=== PATIENT | female | born 1995 | race Caucasian/White ===

== ENCOUNTER → 2020-08-03 08:45 | Outpatient (BNVA) | payer OTHER, SELFPAY | PROVIDERS: Visit Provider Obstetrics & Gynecology | DX: N93.9 Abnormal uterine and vaginal bleeding, unspecified (principal) | CPT/HCPCS: 83001; 84146; 84443; 84702; 85025 ==

== ENCOUNTER → 2020-08-14 13:11 | Outpatient (BNVA) | payer OTHER, SELFPAY | PROVIDERS: Visit Provider Obstetrics & Gynecology | DX: N93.9 Abnormal uterine and vaginal bleeding, unspecified (principal) | CPT/HCPCS: 76830 ==

== ENCOUNTER 2020-08-16 09:06 | Outpatient (CLI) | payer OTHER, SELFPAY ==
--- NOTE | 2020-08-16 09:14 | CT_ITS ---
WS: [id number] CT scan of the head with and without IV contrast, 08/16/2020 Clinical Data: Elevated Prolactin Comparison: None. DLP: 1719.[address] scans at [facility] use at least one of these dose optimization techniques: automat ed exposure control; mA and/or kV adjustment per patient size (includes targeted exams where dose is matched to clinical indication); or iterative reconstruction. Findings: The ventricular system is normal without shift. No recent infarct or hemorrhage is seen. There are no abnormal intracerebral masses. The cisterna magna is large. The brainstem is normal. No abnormal con trast enhancement of any structure occurs. No metastatic lesions are seen. Bony windows of the skull and skull base show no fractures or erosions. The mastoid air cells, internet systems administrator al auditory canals, sella turcica, intraorbital contents, and paranasal sinuses are unremarkable. CT/CT head wo/w con [id number] Impression: Negative CT scan of the head and without IV contrast.
[2020-08-16] MEDS: iohexol 300 mg/mL 100 mL Btl IV (09:29)
== END 2020-08-16 09:07 | disposition home or self-care (01) ==
LOC: RADWPI 09:10
PROVIDERS: PCP Physician Assistant Medical; Visit Provider Obstetrics & Gynecology
DX: E22.1 Hyperprolactinemia (principal)
CPT/HCPCS: 70470; Q9967

== ENCOUNTER → 2020-09-21 11:15 | Outpatient (BNVA) | payer OTHER, SELFPAY | PROVIDERS: PCP Physician Assistant Medical; Visit Provider Obstetrics & Gynecology | DX: N93.9 Abnormal uterine and vaginal bleeding, unspecified (principal) | CPT/HCPCS: 84146 ==

== ENCOUNTER → 2020-12-26 14:30 | Outpatient (BNVA) | payer OTHER, MEDICAID, SELFPAY | PROVIDERS: PCP Physician Assistant Medical; Visit Provider Obstetrics & Gynecology | DX: Z34.90 Encounter for supervision of normal pregnancy, unspecified, unspecified trimester (principal) | CPT/HCPCS: 84702; 85025; 86850; 86900 ==

== ENCOUNTER 2020-12-28 22:41 | Emergency (ER) | payer OTHER, MEDICAID, SELFPAY ==
[2020-12-28 22:47] VITALS: BP 120/71; PULSE 106; RESP 18; TEMP 37.1; O2SAT 95; BMI 25.7
[2020-12-28 22:55] VITALS: BP 118/77; PULSE 105; RESP 16; O2SAT 98
--- NOTE | 2020-12-28 23:25 | ED_ITS ---
HPI - Fever General: Chief Complaint: Fever Stated Complaint: fever Time Seen by Provider: 12/28/20 23:01 Source: patient Mode of arrival: ambulatory Limitations: no limitations History of Present Illness: HPI Narrative: Patient is a 25-year-old female who presents to ED today with a complaint of a fever. Patient tells me she began noticing a sore throat 1 to 2 days ago. She tells me she was seen at another facility earlier today and prescribed azithromycin for tonsillitis. Patient tells me she became concerned when she had a fever of 104 at home today. Patient is afebrile upon arrival. Of note patient has been seen Dr. Antonio recently for abnormal . She was having an inadequate rise of her hCG most likely compatible with a nonviable . Most recent serum quant was 7. She is not complaining of abdominal pain, vaginal bleeding, vaginal discharge, or odor at this time. MD elicited complaint: fever Onset (ago): hour(s) Measured temperature: 104 F Associated symptoms: Reports other (sore throat); Deny abdominal pain, flank pain, chills, chest pain, diarrhea, dysuria, headache(s), nasal congestion, nausea or vomiting Treatments prior to arrival fever: acetaminophen (500mg several hours ago) Review of Systems Const: Reports: fever(s); Denies: chills, body aches, fatigue or malaise Eyes: Denies: change in vision, blurry vision or photophobia ENMT: Reports: throat pain, enlarged tonsils and odynophagia; Denies: ear or mastoid pain, nasal discharge or nasal congestion Card: Denies: chest pain Resp: Denies: dyspnea GI: Denies: abdominal pain, nausea, vomiting, diarrhea or change in stool character : Denies: flank pain or dysuria Musc: Denies: neck pain or back pain Skin/Breast: Denies: rash Neuro: Denies: headache(s) PFSH ED PFSH: Medical History No pertinent past medical history Denies diabetes, asthma, hypertension, seizures, DVT/PE PCP: GLENIS Rangel Surgical History H/O oral surgery dental surgery when she was 7 years old Family History Family/Other Adopted Patient was adopted and does not know all of her biological family history Denies family history of Colon cancer Ovarian cancer Diabetes Heart disease Hyperlipidemia Breast cancer Hypertension Uterine cancer Thyroid condition Stroke Social History Smoking and tobacco status: never smoked Alcohol intake: current Alcohol intake frequency: holidays/special occasions only Alcohol type: beer Physical Exam Const: COMMON NORMALS: no acute distress, average body habitus, patient oriented x3, no limitations, healthy appearing, alert and well nourished GENERAL APPEARANCE: cooperative ORIENTATION/CONSCIOUSNESS: Yes awake, Yes oriented to person, Yes oriented to place and Yes oriented to time HENMT: COMMON NORMALS: normocephalic, atraumatic, hearing grossly normal bilaterally, external ears normal, EAC's normal, TM's normal bilaterally, Normal external nose present, Normal nasal mucous membranes and turbinates present, moist oral mucous membranes and gingiva normal HEAD & SCALP: normal to inspection, normocephalic and atraumatic FACE & SINUS: normal facial exam and sinuses nontender NOSE: Normal external nose present and Normal nasal mucous membranes and turbinates present EXTERNAL EAR: Yes external ears normal EXTERNAL AUDITORY CANAL: EAC's normal TYMPANIC MEMBRANE: TM's normal bilaterally MOUTH: Normal oral and palatal mucosa present, lip normal and tongue normal THROAT: abnormal tonsil bilateral erythema, exudates and hypertrophy Eye: COMMON NORMALS: Equal, round and reactive pupils present and EOMs intact bilaterally GENERAL EYE: appearance normal, both eyes and all related structures PUPIL: Yes Equal, round and reactive pupils present Neck/C-Spine: COMMON NORMALS: full ROM and no meningeal signs GENERAL: Yes lymphadenopathy Lymphadenopathy location: anterior cervical Resp: COMMON NORMALS: normal respiratory effort and clear to auscultation bilaterally AUSCULTATION: clear to auscultation bilaterally Cardio: COMMON NORMALS: regular rate and regular rhythm RATE: regular rate RHYTHM: regular rhythm Neuro: COMMON NORMALS: patient oriented x3 SENSORIUM/ORIENTATION: Yes alert, Yes oriented to person, Yes oriented to place and Yes oriented to time MENINGEAL SIGNS: Yes no meningeal signs Skin: COMMON NORMALS: no rashes or lesions noted GENERAL SKIN EXAM: no rashes or lesions noted Course Vital Signs: Vital signs: Vital Signs Temperature 98.8 F 12/28/20 22:47 Pulse Rate 105 H 12/28/20 22:55 Respiratory Rate 16 12/28/20 22:55 Blood Pressure 118/77 12/28/20 22:55 Pulse Oximetry 98 12/28/20 22:55 MDM - Fever MDM Narrative: Medical decision making narrative: Recommend she start taking the Azithromycin she was given for her diagnosis of strep. Lab Data: Labs: Lab Results 12/28/20 Range/Units 23:29 Group A Strep Rapi d Positive H (Negative) Discharge Plan Discharge Patient Disposition: Home Clinical Impression: Strep tonsillitis Condition: Stable Prescriptions: No Action prenat.vits,andry,[id number] Tablet 1 tab PO DAILY RF: 0 Discharge Orders: Discharge ED (Routine); Ordered 12/28/20 Ordered By: Galina Hernandez Referrals: Andrade Harper [Primary Care Provider] - Patient Instructions: Strep Throat - Adult Coding Level of Care Code ED Linux Unix Administrator for Padmini Shafer
[2020-12-28 23:41] LABS: Rapid Strep A Test Positive (Negative)
[2020-12-28 23:59] VITALS: BP 115/75; RESP 16; O2SAT 100
== END 2020-12-28 23:59 | disposition home or self-care (01) ==
PROVIDERS: Emergency Provider Physician Assistant; PCP Physician Assistant Medical
DX: J03.00 Acute streptococcal tonsillitis, unspecified (principal)
CPT/HCPCS: 87880; 99282

== ENCOUNTER → 2021-01-22 10:09 | Outpatient (BNVA) | payer OTHER, MEDICAID, SELFPAY | PROVIDERS: PCP Physician Assistant Medical; Visit Provider Obstetrics & Gynecology | DX: Z34.90 Encounter for supervision of normal pregnancy, unspecified, unspecified trimester (principal); O03.9 Complete or unspecified spontaneous abortion without complication | CPT/HCPCS: 88175 ==

== ENCOUNTER → 2021-04-24 09:13 | Outpatient (BNVA) | payer OTHER, MEDICAID, SELFPAY | PROVIDERS: PCP Physician Assistant Medical; Visit Provider Obstetrics & Gynecology | DX: N97.0 Female infertility associated with anovulation (principal) | CPT/HCPCS: 84144 ==

== ENCOUNTER → 2021-04-25 09:13 | Outpatient (BNVA) | payer OTHER, MEDICAID, SELFPAY | PROVIDERS: PCP Physician Assistant Medical; Visit Provider Obstetrics & Gynecology | DX: N97.0 Female infertility associated with anovulation (principal); R79.89 Other specified abnormal findings of blood chemistry; R89.9 Unspecified abnormal finding in specimens from other organs, systems and tissues | CPT/HCPCS: 84146 ==

== ENCOUNTER → 2021-05-22 10:48 | Outpatient (BNVA) | payer OTHER, MEDICAID, SELFPAY | PROVIDERS: PCP Physician Assistant Medical; Visit Provider Obstetrics & Gynecology | DX: N93.9 Abnormal uterine and vaginal bleeding, unspecified (principal) | CPT/HCPCS: 84144 ==

== ENCOUNTER → 2021-06-25 11:04 | Outpatient (BNVA) | payer OTHER, MEDICAID, SELFPAY | PROVIDERS: PCP Physician Assistant Medical; Visit Provider Nurse Practitioner Women's Health | DX: N92.6 Irregular menstruation, unspecified (principal); Z87.59 Personal history of other complications of pregnancy, childbirth and the puerperium | CPT/HCPCS: 81025; 84702 ==

== ENCOUNTER → 2021-06-27 14:26 | Outpatient (BNVA) | payer OTHER, MEDICAID, SELFPAY | PROVIDERS: PCP Physician Assistant Medical; Visit Provider Obstetrics & Gynecology | DX: O36.80X0 Pregnancy with inconclusive fetal viability, not applicable or unspecified (principal) | CPT/HCPCS: 84702 ==

== ENCOUNTER → 2021-07-02 14:17 | Outpatient (BNVA) | payer OTHER, MEDICAID, SELFPAY | PROVIDERS: PCP Physician Assistant Medical; Visit Provider Obstetrics & Gynecology | DX: O26.859 Spotting complicating pregnancy, unspecified trimester (principal); Z3A.00 Weeks of gestation of pregnancy not specified | CPT/HCPCS: 84702 ==

== ENCOUNTER → 2021-07-04 15:00 | Outpatient (BNVA) | payer OTHER, MEDICAID, SELFPAY | PROVIDERS: PCP Physician Assistant Medical; Visit Provider Obstetrics & Gynecology | DX: Z87.59 Personal history of other complications of pregnancy, childbirth and the puerperium (principal) | CPT/HCPCS: 84702 ==

== ENCOUNTER → 2021-07-15 09:05 | Outpatient (BNVA) | payer OTHER, MEDICAID, SELFPAY | PROVIDERS: PCP Physician Assistant Medical; Referring Provider Obstetrics & Gynecology; Visit Provider Internal Medicine | DX: R79.89 Other specified abnormal findings of blood chemistry (principal); O03.9 Complete or unspecified spontaneous abortion without complication | CPT/HCPCS: 99204 ==

== ENCOUNTER → 2021-07-17 09:11 | Outpatient (BNVA) | payer OTHER, MEDICAID, SELFPAY | PROVIDERS: PCP Physician Assistant Medical; Visit Provider Internal Medicine | DX: O03.9 Complete or unspecified spontaneous abortion without complication (principal); R79.89 Other specified abnormal findings of blood chemistry | CPT/HCPCS: 84146; 84439; 84443; 84702 ==

== ENCOUNTER 2021-08-15 13:53 | Outpatient (CLI) | payer OTHER, MEDICAID, SELFPAY ==
[2021-08-16 10:07] LABS: Anti-Double Strand DNA AB 2 IU/mL
[2021-08-18 02:00] LABS: CARDIOLIPIN AB (IGA) <2.0 APL-U/mL; CARDIOLIPIN AB (IGG) <2.0 GPL-U/mL; CARDIOLIPIN AB (IGM) 2.9 MPL-U/mL
[2021-08-20 02:58] LABS: Beta 2 Glycoprotein IGA <2.0 U/mL (<20.0); Beta 2 Glycoprotein IGG <2.0 U/mL (<20.0); Beta 2 Glycoprotein IGM 3.7 U/mL (<20.0)
== END 2021-08-15 13:54 | disposition home or self-care (01) ==
LOC: LAB 13:59
PROVIDERS: PCP Physician Assistant Medical; Visit Provider Obstetrics & Gynecology
DX: N96 Recurrent pregnancy loss (principal)
CPT/HCPCS: 36415; 86146; 86147; 86225

== ENCOUNTER → 2021-10-01 10:03 | Outpatient (BNVA) | payer OTHER, MEDICAID, SELFPAY | PROVIDERS: PCP Physician Assistant Medical; Visit Provider Obstetrics & Gynecology | DX: Z34.90 Encounter for supervision of normal pregnancy, unspecified, unspecified trimester (principal) | CPT/HCPCS: 84702 ==

== ENCOUNTER → 2021-10-07 08:46 | Outpatient (BNVA) | payer OTHER, MEDICAID, SELFPAY | PROVIDERS: PCP Physician Assistant Medical; Visit Provider Obstetrics & Gynecology | DX: Z34.90 Encounter for supervision of normal pregnancy, unspecified, unspecified trimester (principal) | CPT/HCPCS: 84702 ==

== ENCOUNTER 2022-02-25 10:20 | Outpatient (CLI) | payer OTHER, MEDICAID, SELFPAY ==
[2022-02-25 12:11] LABS: Estmated Average Glucose 97
[2022-03-06 01:57] LABS: Prolactin, Monomeric 10.4 ng/mL (3.2-25.2); Prolactin, Total 13.2 ng/mL
== END 2022-02-25 10:21 | disposition home or self-care (01) ==
PROVIDERS: Visit Provider Nurse Practitioner Family
DX: N96 Recurrent pregnancy loss (principal)
CPT/HCPCS: 36415; 83036; 84146

== ENCOUNTER → 2022-10-22 09:40 | Outpatient (BNVA) | payer OTHER, MEDICAID, SELFPAY | PROVIDERS: Visit Provider Internal Medicine | DX: R79.89 Other specified abnormal findings of blood chemistry (principal); N92.6 Irregular menstruation, unspecified | CPT/HCPCS: 84146; 84439; 84443 ==

== ENCOUNTER → 2023-01-02 09:34 | Outpatient (BNVA) | payer OTHER, MEDICAID, SELFPAY | PROVIDERS: Visit Provider Nurse Practitioner Women's Health | DX: Z34.90 Encounter for supervision of normal pregnancy, unspecified, unspecified trimester (principal); N96 Recurrent pregnancy loss; R79.89 Other specified abnormal findings of blood chemistry; O09.899 Supervision of other high risk pregnancies, unspecified trimester | CPT/HCPCS: 84315; 84702 ==

== ENCOUNTER → 2023-01-07 09:12 | Outpatient (BNVA) | payer OTHER, MEDICAID, SELFPAY | PROVIDERS: Visit Provider Nurse Practitioner Women's Health | DX: Z36.87 Encounter for antenatal screening for uncertain dates (principal) | CPT/HCPCS: 76801 ==

== ENCOUNTER 2023-01-16 08:26 | Outpatient (CLI) | payer OTHER, MEDICAID, SELFPAY ==
[2023-01-16 10:00] LABS: Free T4 Free Thyroxine 1.17 ng/dL (0.82-1.77); Thyroid Stimulating Hormone 0.73 uIU/mL (0.27-4.20)
[2023-01-16 10:42] LABS: Prolactin 2.65 ng/mL (4.8-23.3)
== END 2023-01-16 08:27 | disposition home or self-care (01) ==
LOC: LAB 08:30
PROVIDERS: Visit Provider Internal Medicine
DX: N92.6 Irregular menstruation, unspecified (principal); R79.89 Other specified abnormal findings of blood chemistry
CPT/HCPCS: 36415; 84146; 84439; 84443

== ENCOUNTER → 2023-01-19 11:00 | Outpatient (BNVA) | payer OTHER, MEDICAID, SELFPAY | PROVIDERS: Visit Provider Obstetrics & Gynecology | DX: O09.899 Supervision of other high risk pregnancies, unspecified trimester (principal) | CPT/HCPCS: 80307; 84315; 85027; 86592; 86762; 86803; 86850; 86900; 87086; 87340; 87491; 87591; 87661; 87806; 88175 ==

== ENCOUNTER 2023-03-16 10:07 | Outpatient (CLI) | payer OTHER, MEDICAID, SELFPAY ==
[2023-03-16 11:18] LABS: Prolactin 37.73 ng/mL (4.8-23.3)
== END 2023-03-16 10:08 | disposition home or self-care (01) ==
LOC: LAB 10:11
PROVIDERS: PCP Nurse Practitioner Family; Visit Provider Internal Medicine
DX: Z34.90 Encounter for supervision of normal pregnancy, unspecified, unspecified trimester (principal); N92.6 Irregular menstruation, unspecified; R79.89 Other specified abnormal findings of blood chemistry
CPT/HCPCS: 36415; 84146

== ENCOUNTER → 2023-04-01 09:15 | Outpatient (BNVA) | payer OTHER, MEDICAID, SELFPAY | PROVIDERS: PCP Nurse Practitioner Family; Visit Provider Obstetrics & Gynecology | DX: Z36.87 Encounter for antenatal screening for uncertain dates (principal) | CPT/HCPCS: 76805 ==

== ENCOUNTER → 2023-04-22 09:15 | Outpatient (BNVA) | payer OTHER, MEDICAID, SELFPAY | PROVIDERS: PCP Nurse Practitioner Family; Visit Provider Obstetrics & Gynecology | DX: O09.899 Supervision of other high risk pregnancies, unspecified trimester (principal); Z3A.00 Weeks of gestation of pregnancy not specified | CPT/HCPCS: 76816 ==

== ENCOUNTER → 2023-04-28 08:31 | Outpatient (BNVA) | payer OTHER, MEDICAID, SELFPAY | PROVIDERS: PCP Nurse Practitioner Family; Visit Provider Nurse Practitioner Women's Health | DX: O09.899 Supervision of other high risk pregnancies, unspecified trimester (principal); Z3A.24 24 weeks gestation of pregnancy | CPT/HCPCS: 82950; 84315 ==

== ENCOUNTER → 2023-05-28 09:50 | Outpatient (BNVA) | payer OTHER, MEDICAID, SELFPAY | PROVIDERS: PCP Nurse Practitioner Family; Visit Provider Obstetrics & Gynecology | DX: O09.899 Supervision of other high risk pregnancies, unspecified trimester (principal); Z3A.28 28 weeks gestation of pregnancy | CPT/HCPCS: 81000; 85025 ==

== ENCOUNTER → 2023-06-11 09:20 | Outpatient (BNVA) | payer OTHER, MEDICAID, SELFPAY | PROVIDERS: PCP Nurse Practitioner Family; Visit Provider Obstetrics & Gynecology | DX: O09.899 Supervision of other high risk pregnancies, unspecified trimester (principal); O99.013 Anemia complicating pregnancy, third trimester; O34.42 Maternal care for other abnormalities of cervix, second trimester; R87.619 Unspecified abnormal cytological findings in specimens from cervix uteri; N96 Recurrent pregnancy loss; R79.89 Other specified abnormal findings of blood chemistry; O35.HXX0 Maternal care for other (suspected) fetal abnormality and damage, fetal lower extremities anomalies, not applicable or unspecified; Z3A.30 30 weeks gestation of pregnancy | CPT/HCPCS: 81000 ==

== ENCOUNTER 2023-06-17 09:43 | Outpatient (CLI) | payer MEDICAID, SELFPAY ==
[2023-06-17 10:55] LABS: Prolactin 286.8 ng/mL (4.8-23.3)
== END 2023-06-17 09:44 | disposition home or self-care (01) ==
PROVIDERS: PCP Nurse Practitioner Family; Visit Provider Internal Medicine
DX: R79.89 Other specified abnormal findings of blood chemistry (principal)
CPT/HCPCS: 36415; 84146

== ENCOUNTER → 2023-06-25 10:58 | Outpatient (BNVA) | payer OTHER, MEDICAID, SELFPAY | PROVIDERS: PCP Nurse Practitioner Family; Visit Provider Obstetrics & Gynecology | DX: O09.899 Supervision of other high risk pregnancies, unspecified trimester (principal); Z3A.32 32 weeks gestation of pregnancy | CPT/HCPCS: 81000 ==

== ENCOUNTER → 2023-07-23 09:39 | Outpatient (BNVA) | payer OTHER, MEDICAID, SELFPAY | PROVIDERS: PCP Nurse Practitioner Family; Visit Provider Obstetrics & Gynecology | DX: O09.899 Supervision of other high risk pregnancies, unspecified trimester (principal); Z34.90 Encounter for supervision of normal pregnancy, unspecified, unspecified trimester; Z3A.36 36 weeks gestation of pregnancy | CPT/HCPCS: 84315; 85025; 87081 ==

== ENCOUNTER 2023-07-30 07:30 | Day surgery (SDC) | payer OTHER, MEDICAID, SELFPAY ==
--- NOTE | 2023-07-30 09:11 | P.ANESASSM_ITS ---
Pre-Anesthetic Assessment Height/Weight: Height 1.42 m Familial anesthetic complications: None Social No alcohol and No tobacco Exam alert, oriented x 3, clear to auscultation bilaterally and regular rate & rhythm Airway Dentition: chipped Pulmonary None reported CV/HEM None reported None reported Hepatic None reported GI Gastroesophageal Reflux Disease Metabolic None reported Musc/skel Cleidocranial dysplasi Anesthetic Plan ASA status: 2 Anesthesia: Regional (specify below) Risk of > 500 ml blood loss (7ml/kg in children): Yes, adequate IV access and fluids planned Medications/Allergies Home Medications Medication Instructions Recorded Confirmed Last Taken Type cabergoline 0.5 mg tablet 0.25 mg PO .COMPLEX #90 tabs 10/22/22 07/30/23 Unknown Rx PNV 153-FA 400 mcg-om3 35 mg-dha 1 tab PO DAILY 01/02/23 07/30/23 Unknown History 25 mg-epa 5 mg-fish oil chew tablet ( Gummies) ferrous sulfate 325 mg (65 mg 325 mg PO BID Anemia 30 days #60 06/11/23 07/30/23 Unknown Rx iron) tablet tabs Allergies Allergy/AdvReac Type Severity Reaction Status Date / Time cefdinir Allergy Severe hives Verified 07/30/23 08:04 [facility] Anesthesia Medical History Elevated prolactin level Diagnosed 07/31/2018 and has taken cabergoline in the past. Now being managed by manager domestic Dr. Lainez at [facility] No pertinent past medical history Denies diabetes, asthma, hypertension, seizures, DVT/PE PMD: clinic Surgical History H/O oral surgery dental surgery when she was 7 years old Family History Family/Other Adopted Patient was adopted and does not know all of her biological family history Denies family history of Colon cancer Ovarian cancer Diabetes Heart disease Hyperlipidemia Breast cancer Hypertension Uterine cancer Thyroid disease Stroke Data Anesthesia Cardiac Studies: No Data to Display
== END 2023-07-30 23:00 | disposition home or self-care (01) ==
LOC: OR 08-20 10:38
PROVIDERS: PCP Nurse Practitioner Family; Visit Provider Obstetrics & Gynecology
DX: Z01.818 Encounter for other preprocedural examination (principal)
CPT/HCPCS: 81000

== ENCOUNTER → 2023-08-20 08:30 | Outpatient (BNVA) | payer OTHER, MEDICAID, SELFPAY | PROVIDERS: PCP Nurse Practitioner Family; Visit Provider Obstetrics & Gynecology | DX: O09.899 Supervision of other high risk pregnancies, unspecified trimester (principal); Z3A.40 40 weeks gestation of pregnancy | CPT/HCPCS: 76819 ==

== ENCOUNTER 2023-08-20 17:39 | Inpatient (IN) | payer OTHER, MEDICAID, SELFPAY ==
[2023-08-20] VITALS (17 sets, daily range): BP systolic 113–131; BP diastolic 66–80; PULSE 68–94; RESP 16; TEMP 36.5–36.8; BMI 28.0
[2023-08-20 18:05] LABS: Basophils % 0.4 %; Eosinophils # 0.1 10^3/uL (0.0-0.8); Eosinophils % 0.8 %; Hematocrit 33.3 % (36-47); Lymphocytes # 2.6 10^3/uL (0.8-4.8); Lymphocytes % 23.4 %; Mean Corpuscular HGB Conc 32.7 g/dL (30-55); Mean Corpuscular Hemoglobin 28.5 pg (27-33); Mean Corpuscular Volume 87.2 fl (85-98); Mean Platelet Volume 12.4 fL (7.4-10.4); Monocytes # 0.8 10^3/uL (0.2-0.9); Monocytes % 6.9 %; Neutrophils # 7.65 10^3/uL (1.8-7.7); Neutrophils % 68.1 %; Nucleated Red Blood Cells % 0 %; Platelet Count 226 10^3/cmm (157-399); Red Blood Count 3.82 10^6/uL (3.85-5.65); White Blood Count 11.24 10^3/uL (3.29-11.43)
[2023-08-20] MEDS: miSOPROStol 100 mcg tablet 25 MCG VAGINAL ×2 (18:32→23:00)
[2023-08-20] MEDS: lactated ringers 1,000 ML 999 ML IV (19:34)
[2023-08-21] VITALS (93 sets, daily range): BP systolic 98–183; BP diastolic 56–88; PULSE 51–87; RESP 14–18; TEMP 35.9–36.8; O2SAT 98–100
[2023-08-21] MEDS: miSOPROStol 100 mcg tablet 25 MCG VAGINAL (03:09)
[2023-08-21] MEDS: fentaNYL 50 mcg/mL INJ 2mL IVP ×7 (06:15→20:18)
--- NOTE | 2023-08-21 09:58 | PM.PN ---
Subjective Subjective: Mrs. Jackman 28-year-old female with IUP at 40 weeks 3 days. Admitted for elective induction Vitals/I&O/Wt Last Vital Signs Temp 97.9 F 08/21/23 06:19 Pulse 56 L 08/21/23 09:18 Resp 17 08/21/23 07:18 BP 110/66 08/21/23 09:18 O2 Del Method Room Air 08/20/23 18:04 08/20/23 08/21/23 08/21/23 22:59 06:59 14:59 Intake Total 1000 / 1000 Balance 1000 / 1000 Weight last 48 hrs Weight 56.699 kg Physical Exam Narrative: GA: Alert and oriented ?3. Lungs: Clear to auscultation bilaterally. Heart: Regular rhythm and rate. Abdomen: Gravid, full the height equals dates, nontender. BINITROTOLUENE OPERATOR: SVE; dilation: 2 cm, effacement: []%, station: [], presentation: [], membranes: []. Extremities: no edema, no cyanosis, no calves pain. heart tracing: Basal rate: [140's] bpm, Variability: [moderate], Accelerations: [present], Decelerations: [absent], Contraction: [q3min]. Data 08/22/23 17:19 A&P Assessment and plan (1) Term : Mrs. Jackman 28-year-old female with IUP at 40 weeks 3 days. Admitted for induction. Misoprostol grieving overnight for cervical ripening. Cervix dilated to 2 cm. We will start with low-dose oxytocin (2) Oligohydramnios antepartum: Attestations Medical Necessity Statement*: In my professional opinion per admitting diagnosis Coding Level of Care Code Acute Code for Chg Fwd Diagnoses Term Z34.90 Oligohydramnios antepartum O41.00X0
[2023-08-21] MEDS: dextrose 5%-lactated ringers 1,000 ML 125 ML IV ×2 (10:39→17:54)
[2023-08-21] MEDS: oxytocin 30 UNIT/500 ML BAG IV (10:39)
[2023-08-21] MEDS: ondansetron 2 mg/ML SDV 2 mL 4 MG IVP ×2 (16:16→20:53)
[2023-08-21] MEDS: lactated ringers 1,000 ML 999 ML IV (20:22)
--- NOTE | 2023-08-21 20:35 | P.HP_ITS ---
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 Admitted for Cervical Ripening and IOL. Patient admits to good movement, denies leakage of fluid or vaginal bleeding. She denies any complications through this course. She has history of seeing an tactical air defense controller due to elevated prolactin levels and has been treated with cabergoline 0.25 mg twice daily. MFM visit with level 2 ultrasound indicates no abnormalities. Patient has received 3 doses of Cytotec and is currently on Pitocin at 12 milliunits. Cervix?3 cm / 70%/-3 vertex presentation. AROM with clear fluid noted. Present Details : 1 Labs Rubella: Immune RPR: Negative GBS: Negative Review of Systems Narrative: movement: Const: Denies: fever(s) or chills Card: Denies: chest pain, palpitations, irregular heart rhythm or syncope Resp: Denies: dyspnea GI: Denies: abdominal pain, nausea or vomiting : Denies: flank pain, dysuria, urinary frequency or urinary urgency Musc: Denies: back pain or extremity swelling Skin/Breast: Denies: rash, pruritus, breast pain, nipple discharge or breast mass Neuro: Denies: headache(s), difficulty walking, dizziness or restless legs Psych: Denies: anxiety, depression or mood swings Endo: Denies: polyuria, tired all the time, cold intolerance or heat intolerance Odin/Lymph: Denies: easy bruising, easy bleeding, petechiae or purpura All/Imm: Denies: urticaria Medications/Allergies Home Medications Medication Instructions Recorded Confirmed Last Taken Type cabergoline 0.5 mg tablet 0.25 mg PO .COMPLEX #90 tabs 10/22/22 08/20/23 Unknown Rx PNV 153-FA 400 mcg-om3 35 mg-dha 1 tab PO DAILY 01/02/23 08/20/23 Unknown History 25 mg-epa 5 mg-fish oil chew tablet ( Gummies) ferrous sulfate 325 mg (65 mg 325 mg PO BID Anemia 30 days #60 06/11/23 08/20/23 Unknown Rx iron) tablet tabs Allergies Allergy/AdvReac Type Severity Reaction Status Date / Time cefdinir Allergy Severe hives Verified 08/20/23 08:02 PFSH TONGUE AND GROOVE MACHINE OPERATOR PFSH: Medical History Elevated prolactin level Diagnosed 07/31/2018 and has taken cabergoline in the past. Now being managed by tactical air defense controller Dr. Lainez at [facility] No pertinent past medical history Denies diabetes, asthma, hypertension, seizures, DVT/PE PMD: [facility] Surgical History H/O oral surgery dental surgery when she was 7 years old Family History Family/Other Adopted Patient was adopted and does not know all of her biological family histo ry Denies family history of Colon cancer Ovarian cancer Diabetes Heart disease Hyperlipidemia Breast cancer Hypertension Uterine cancer Thyroid disease Stroke Other Female Reproductive History: Hx Age of Menarche: 12 Duration of menses: 6-7 days Date of Last Menstrual Period: 11/11/22 Cycle Length: 28 days Menstrual flow: normal/abnormal: normal Sexual History: Are you sexually active?: Yes Less than 5 How long have you been with your current partner?: Since 2019 Hx Sexually Transmitted Diseases: No Contraception: Contraception History Comment: History of oral contraception for menstrual regulation. History History History 4 Term 0 0 Miscarriages/Ectopic 3 Living Children 0 Care MATHEUS Calculator Estimated Delivery Date Method Current WG Current Estimate 08/18/23 LMP (Certain) 40w 3d Specific Issues/Plans * ANEMIA--dx at 28wks; iron bid; rpt cbc at 36 weeks * RECURRENT SAB * ELEVATED PROLACTIN * SUSPECTED UNILATERAL CLUB FOOT-- refer to [facility] 04/28/2023 Vitals/I&O/Wt Last Vital Signs Temp 96.6 F L 08/21/23 16:35 Pulse 67 08/21/23 20:32 Resp 18 08/21/23 18:54 BP 183/83 08/21/23 20:32 O2 Del Method Room Air 08/21/23 18:41 08/21/23 08/21/23 08/21/23 06:59 14:59 22:59 Intake Total 19.516 / 19.516 1443.517 / 1463.033 Balance 19.516 / 19.516 1443.517 / 1463.033 Weight last 48 hrs Weight 56.699 kg Physical Exam Narrative: 28-year-old female with short stature 4 foot 8 Const: COMMON NORMALS: no acute distress, healthy appearing and well nourished HENMT: COMMON NORMALS: normocephalic Resp: COMMON NORMALS: clear to auscultation bilaterally Cardio: COMMON NORMALS: regular rate and regular rhythm Back/Pelvis: OTHER: Abdomen?soft, gravid Pelvic exam as above Extremity: COMMON NORMALS: no calf tenderness and no pedal edema Neuro: COMMON NORMALS: patient oriented x3 and CN's II-XII intact bilaterally Data 08/20/23 17:45 Results Labs OB ([facility]): Obstetrics US 04/22/23 Obstetrics US/Biophysical Profile Blood Type A Positive 08/20/23 Antibody Screen Negative 08/20/23 Hct 33.3 % (36-47) L 08/20/23 Hgb 10.90 g/dL (11.27-16.99) L 08/20/23 Rho(D) Type Rh positive 08/20/23 Plt Count 226 10^3/cmm (157-399) 08/20/23 Hep Bs Antigen Non-reactive (Nonreactive) 01/19/23 Hepatitis C Antibody Non-reactive (Nonreactive) 01/19/23 Rubella IgG Antibody 168.8 IU/mL (0.0-10.0) H 01/19/23 RPR Nonreactive (Nonreactive) 01/19/23 HIV 1&2 Ab & HIV 1 Ag Non-reactive (Non-Reactiv) 01/19/23 TSH 0.73 uIU/mL (0.27-4.20) 01/16/23 Free T4 1.17 ng/dL (0.82-1.77) 01/16/23 Cystic Fibrosis Screen Negative 03/03/23 Glucose 1 Hr 50 gm 70 mg/dL (85-140) L 04/28/23 Hemoglobin A1c 5.0 % (4.0-6.0) 02/25/22 Progesterone 10.20 ng/mL 05/22/21 FSH 5.4 mIU/mL 08/03/20 Ser , Semi-Qnt 86008.00 mIU/mL 01/02/23 HCG, Qual Positive (Negative) H 06/25/21 Urine Opiates Screen Negative ng/mL (Negative) 01/19/23 Ur Barbiturates Screen Negative ng/mL (Negative) 01/19/23 Ur Phencyclidine Scrn Negative ng/mL (Negative) 01/19/23 Ur Amphetamines Screen Negative ng/mL (Negative) 01/19/23 U Benzodiazepines Scrn Negative ng/mL (Negative) 01/19/23 Urine Cocaine Screen Negative ng/mL (Negative) 01/19/23 U Marijuana (THC) Screen Negative ng/mL (Negative) 01/19/23 Micro Urine Specimen 01/19/23 Pap Smear Interpret See note A 01/19/23 Prolactin 286.8 ng/mL (4.8-23.3) H 06/17/23 A&P Assessment and plan (1) Postmaturity , 40-42 weeks gestation: Plan 1. Cervical ripening/induction of labor at 40.3 weeks gestation 2. Consider magnesium sulfate if blood pressure remains elevated (2) Oligohydramnios antepartum: (3) Anemia affecting in third trimester: (4) Supervision of other high-risk : (5) History of recurrent miscarriages: (6) Prolactin increased: (7) Abnormal cervical Papanicolaou smear affecting in second trimester: Attestations Medical Necessity Statement*: Admission to labor and delivery for postdate for induction of labor m anagement Coding Level of Care Code Acute Code for Chg Fwd Diagnoses Postmaturity , 40-42 weeks gestation O48.0 Oligohydramnios antepartum O41.00X0 Anemia affecting in third trimester O99.013 Supervision of other high-risk O09.899 History of recurrent miscarriages N96 Prolactin increased R79.89 Abnormal cervical Papanicolaou smear affecting in second trimester O34.42; R87.619
--- NOTE | 2023-08-21 21:24 | P.ANESUD_ITS ---
Documented by User: Elliott English CRNA 08/21/23 21:25 Pre-Anesthetic Update Pre-Anesthetic Assessment: Date of Surgery/Procedure: 08/21/23 Any changes to Pre-Anesthetic Assessment?: No Last Intake: Solid food >24 hours Labs Last 48hrs: Short CBC 08/20/23 Range/Units 17:45 WBC 11.24 (3.29-11.43) 10^ 3/uL Hgb 10.90 L (11.27-16.99) g/ dL Hct 33.3 L (36-47) % MCV 87.2 (85-98) fl Plt Count 226 (157-399) 10^3/c mm Neut % (Auto) 68.1 % Neut # (Auto) 7.65 (1.8-7.7) 10^3/u L Blood Bank 08/20/23 17:45 Blood Type A Positive Rho(D) Type Rh positive Antibody Screen Negative Vitals: Temperature 96.6 F L 08/21/23 16:35 Pulse Rate 70 08/21/23 21:16 Pulse Rhythm Regular 08/20/23 18:04 Respiratory Rate 18 08/21/23 18:54 Respiratory Effort Spontaneous, Non- Labored, Easy 08/21/23 18:54 Respiratory Depth Normal 08/21/23 18:54 Respiratory Patter n Normal 08/21/23 18:54 Blood Pressure 142/67 08/21/23 21:16 Oxygen Delivery Me thod Room Air 08/21/23 18:41 Exam: Pre-Anes Outpt Exam: alert, oriented x 3, clear to auscultation bilate rally and regular rate & rhythm Cardiac Studies: No Data to Display Documented by User: John Rangel 08/22/23 06:09 Pre-Anesthetic Update Pre-Anesthetic Assessment: Date of Surgery/Procedure: 08/22/23 Cardiac Studies: No Data to Display
[2023-08-21] MEDS: ROPivacaine syringe 100 MG/50 ML SYRINGE 10 MG EPIDURAL (21:48)
--- NOTE | 2023-08-21 21:55 | ANES.PROC ---
Documented by User: Elliott English, OPEN CUT EXAMINER 08/21/23 21:56 Anesthesia Procedures Procedure/Date: 08/21/23 Epidural: Time Out Performed: Yes Consents Signed: Procedure Consent and NPO Consent Consent: requested by attending/covering physician, from patient, risks and benefits reviewed and patient agrees to proceed Lumbar Level: L3-L4 Epidural position: sitting Epidural procedure: sterile prep of area (betadine), 1% lidocaine to numb the area (3 mLs), neg for paresthesia, test dose given, 1.5% xylocaine 1:200k epi (3 mL/2 mL), 0.2% Ropivacaine bolus ml (5 mLs), placed PCEA, no systemic response, sterile dressing applied, L.U.D. no apparent complications and 0.2% Ropiavacaine @ mls/hr (10 mLs/hr) Additional Comments: RUI 5cm, catheter placed to 11 cm Documented by User: John Rangel 08/22/23 06:09 Anesthesia Procedures Procedure/Date: 08/22/23
[2023-08-22] VITALS (59 sets, daily range): BP systolic 100–139; BP diastolic 56–85; PULSE 68–116; RESP 14–16; TEMP 35.7–37.7; O2SAT 77–100
[2023-08-22] MEDS: ROPivacaine syringe 100 MG/50 ML SYRINGE 10 MG EPIDURAL (01:50)
[2023-08-22] MEDS: dextrose 5%-lactated ringers 1,000 ML 125 ML IV ×2 (03:35→12:27)
[2023-08-22] MEDS: lactated ringers 1,000 ML 999 ML IV (03:44)
--- NOTE | 2023-08-22 05:11 | PM.PN ---
Subjective Subjective: Called to see patient regarding tachycardia at 4:40 AM. Upon arrival decreased variability with tachycardia at 215 bpm. (Approximately 1 hour) nursing staff report cervical dilatation at 6 to 7 cm. Reviewed with patient tachycardia and repeat for delivery by section. Risk of bleeding, infection and injury to pelvic and abdominal organs blood vessels and nerves reviewed. Patient verbalized understanding and consents were signed. Surgical staff have been called. Vitals/I&O/Wt Last Vital Signs Temp 99.9 F H 08/22/23 03:34 Pulse 115 H 08/22/23 04:58 Resp 18 08/21/23 18:54 BP 112/62 08/22/23 04:53 Pulse Ox 100 08/22/23 04:58 O2 Del Method Room Air 08/21/23 18:41 08/21/23 08/21/23 08/22/23 14:59 22:59 06:59 Intake Total 19.516 / 19.516 2832.783 / 2852.299 791.917 / 3644.216 Balance 19.516 / 19.516 2832.783 / 2852.299 791.917 / 3644.216 Weight last 48 hrs Weight 56.699 kg Physical Exam Urinary Catheter Management: Estrada: Cath Placed During This Visit: yes Urinary Catheter Date of Insertion: 08/21/23 Urinary Catheter Time of Insertion: 22:27 Data 08/20/23 17:45 A&P Assessment and plan (1) tachycardia during labor: Plan 1. Proceed with section delivery (2) Postmaturity , 40-42 weeks gestation: (3) Oligohydramnios antepartum: (4) Anemia affecting in third trimester: (5) Supervision of other high-risk : (6) History of recurrent miscarriages: (7) Prolactin increased: Attestations Medical Necessity Statement*: Management of postterm . Coding Level of Care Code Acute Code for Chg Fwd Diagnoses tachycardia during labor Postmaturity , 40-42 weeks gestation O48.0 Oligohydramnios antepartum O41.00X0 Anemia affecting in third trimester O99.013 Supervision of other high-risk O09.899 History of recurrent miscarriages N96 Prolactin increased R79.89
[2023-08-22] MEDS: metoclopramide 5 mg/mL SDV 2 mL 10 MG IVP (05:20)
[2023-08-22] MEDS: famotidine 20 mg/2 mL INJ IVP (05:20)
[2023-08-22] MEDS: citric acid-sodium citrate 30 mL UDC PO (05:23)
[2023-08-22] MEDS: methylergonovine 0.2 mg/mL INJ 1 mL IM (06:00)
--- NOTE | 2023-08-22 06:34 | PM.DELIVERY ---
Delivery Note: Date of delivery: August 22, 2023 Pre-delivery diagnoses: 40.3-week gestation tachycardia Oligohydramnios History of elevated prolactin level Maternal short stature Clubfoot of fetus affecting antepartum care (ultrasound) Post-delivery diagnoses: Same Procedure: 28-year-old female at 40.3 weeks gestation counseled on primary section due to tachycardia. Risk and benefits reviewed and consent signed. Patient was prepared for surgery and transported to the surgical suite after being seen by anesthesia. Her epidural was redosed skin testing was adequate. Estrada catheter was in place. Abdomen and pelvis prepped and draped in the standard fashion. A Pfannenstiel incision was made 2 cm above the pubis and extended to the fascia. The fascia was incised and the incision lateralized. The fascia was dissected off the rectus muscle and the muscles entered in the midline. The peritoneum was opened bluntly a bladder flap placed to protect the bladder. A low transverse uterine incision was made and extended laterally. The 's vertex was delivered through the incision atraumatically followed by the anterior and posterior shoulders with the remainder of the baby's body to follow. Moderate molding was noted. A weak cry was noted. The umbilical cord was clamped and cut and baby placed on the warmer. Stitch Bonding Machine Drawer In was in attendance and cared for the infant. Cord pH and cord blood were drawn and handed off. The placenta was manually removed the uterus exteriorized and wiped clean with a lap sponge. Pitocin was added to the current infusing IV and administered in a bolus manner. The uterus was massaged and was slow to firm. Methergine 0.2 was given IM. TXA was given IV. The uterine incision was closed with 0 Vicryl in a running interlocking stitch with good approximation and hemostasis. Small amount of oozing was noted in the left corner of the incision this was oversewn with 0 Vicryl with good hemostasis. The uterus again was massaged and started to firm well. The posterior cul-de-sac and sidewalls were wiped clean with a moist lap sponge. The uterus replaced in the abdomen the incision inspected and noted to be hemostatically intact. The peritoneum and rectus muscle were approximated with 2-0 Vicryl. The fascia closed with 0 Vicryl in a running stitch. The subcu fat was approximated with 2-0 Vicryl. The skin approximated with 4-0 Vicryl in a subcuticular stitch. The incision was cleansed and a pressure dressing applied. The uterus and vaginal vault expressed. Mother and are both in stable and satisfactory condition. EBL?500 ml urine output?200 anesthesia?epidural 7/8 pH?7.27 7 pounds 5 ounces Delivering Physician: Shoaib Rubin DO Findings: Viable baby girl with right clubfoot, moderate molding Pre-Delivery Course: Admission for induction of labor/cervical ripening with 3 doses of Cytotec followed by Pitocin. Delivery: Primary low transverse section with delivery of a viable baby girl 7 pounds 5 ounces Post-Delivery Status: Stable History History History 4 Term 0 0 Miscarriages/Ectopic 3 Living Children 0 A&P Assessment and plan (1) tachycardia during labor: (2) Postmaturity , 40-42 weeks gestation: (3) Club foot of fetus affecting antepartum care of mother: (4) History of recurrent miscarriages: (5) Prolactin increased: Plan Primary low transverse section delivery Coding Level of Care Code Acute Code for Chg Fwd Diagnoses tachycardia during labor Postmaturity , 40-42 weeks gestation O48.0 Club foot of fetus affecting antepartum care of mother O35.HXX0 History of recurrent miscarriages N96 Prolactin increased R79.89
[2023-08-22] MEDS: clindamycin 600 MG/50 ML PREMIX 100 MG IV (06:35)
[2023-08-22] MEDS: clindamycin 300 MG/50 ML PREMIX 100 MG IV (06:50)
--- NOTE | 2023-08-22 06:55 | ANE.PACU2 ---
Inpatient post-anesthesia follow up: Airway intact: Yes Vital signs: Temperature 97.0 F Pulse Rate 95 Respiratory Rate 14 Blood Pressure 122/80 Pulse Oximetry 100 Oxygen Delivery Me thod Room Air Oxygen Flow Rate Fraction of Inspir ed Oxygen Hydration adequate: Yes Nausea and vomiting: No Pain level: 2 Mental status: Baseline Additional Comments: Anes start 08/21/232126 Anes end 08/22/23 [id number]
[2023-08-22] MEDS: ketorolac 30 mg/mL INJ IVP ×2 (12:27→20:56)
[2023-08-22 17:58] LABS: Hematocrit 24.5 % (36-47); Mean Corpuscular HGB Conc 32.7 g/dL (30-55); Mean Corpuscular Volume 88.8 fl (85-98); Mean Platelet Volume 11.9 fL (7.4-10.4); Platelet Count 187 10^3/cmm (157-399); Red Blood Count 2.76 10^6/uL (3.85-5.65); Red Cell Distribution Width 13.2 % (12.1-15.1); White Blood Count 15.57 10^3/uL (3.29-11.43)
[2023-08-23 04:16] VITALS: BP 129/83; PULSE 97
[2023-08-23 07:00] VITALS: RESP 15; TEMP 36.7
[2023-08-23] MEDS: prenatal vitamin Capsule 1 CAP PO (09:06)
[2023-08-23] MEDS: ferrous sulfate EC 325 mg Tablet PO (09:07)
[2023-08-23] MEDS: docusate sodium 100 mg Capsule PO (09:07)
[2023-08-23] MEDS: ibuprofen 800 mg tablet PO (09:09)
[2023-08-23 09:43] VITALS: BP 122/72; PULSE 101
--- NOTE | 2023-08-23 10:26 | PM.PN ---
Subjective Subjective: 28-year-old female G1, P1 s/p primary section due to tachycardia. Patient is doing well with no complaints. She denies any headaches, visual changes, shortness of breath or chest pain. She admits to good ambulation, and has voided and is passing gas. Care of her surgical wound was reviewed with her to include keeping it clean by showering daily. If the incision starts to bleed, have intense pain or look red she is to call and be seen at the clinic or to the emergency room. Also if she experiences excessive vaginal bleeding or excessive abdominal pain she is to go to the emergency room or call the clinic or labor and delivery for instructions. I advised the patient to ambulate frequently in the room or in the hallway to decrease the risk of getting pneumonia or blood clot in her extremities, lungs or heart. Patient understands. Vitals/I&O/Wt Last Vital Signs Temp 98.1 F 08/22/23 20:00 Pulse 101 H 08/23/23 09:43 Resp 16 08/22/23 12:15 BP 122/72 08/23/23 09:43 Pulse Ox 98 08/22/23 13:06 O2 Del Method Room Air 08/22/23 07:00 08/22/23 08/23/23 08/23/23 22:59 06:59 14:59 Output Total 660 / 900 Balance -660 / -850 Physical Exam Back/Pelvis: OTHER: Abdomen?soft, bandage removed from the incision, incision clean and dry. Lochia light. Fundus firm well below the umbilicus. Nontender. Extremity: NARRATIVE EXTREMITY EXAM: Extremities?no edema, negative Homans' sign. Urinary Catheter Management: Estrada: Cath Placed During This Visit: yes, but has since been removed by the nurse Reason for Continuing Indwelling Catheter: Decision to DC Catheter Urinary Catheter Date of Insertion: 08/21/23 Urinary Catheter Time of Insertion: 22:27 Date Urinary Catheter Removed: 08/22/23 Time Urinary Catheter Discontinued: 22:45 Data 08/22/23 17:19 A&P Assessment and plan (1) Status post primary low transverse section: Plan #1 continue postop care. (2) tachycardia during labor: (3) Postmaturity , 40-42 weeks gestation: (4) Oligohydramnios antepartum: (5) Anemia affecting in third trimester: (6) Club foot of fetus affecting antepartum care of mother: (7) Abnormal cervical Papanicolaou smear affecting in second trimester: (8) Supervision of other high-risk : (9) History of recurrent miscarriages: (10) Prolactin increased: Attestations Medical Necessity Statement*: Patient was admitted to labor and delivery for induction of labor at 40.2 weeks gestation Coding Level of Care Code Acute Code for Chg Fwd Diagnoses Status post primary low transverse section Z98.891 tachycardia during labor Postmaturity , 40-42 weeks gestation O48.0 Oligohydramnios antepartum O41.00X0 Anemia affecting in third trimester O99.013 Club foot of fetus affecting antepartum care of mother O35.HXX0 Abnormal cervical Papanicolaou smear affecting in second trimester O34.42; R87.619 Supervision of other high-risk O09.899 History of recurrent miscarriages N96 Prolactin increased R79.89
[2023-08-23 18:09] VITALS: BP 134/85; PULSE 87; TEMP 35.9
[2023-08-23 20:13] VITALS: BP 120/66; PULSE 91
[2023-08-24 04:00] VITALS: RESP 17
[2023-08-24 04:47] VITALS: BP 118/69; PULSE 103
[2023-08-24 04:48] VITALS: TEMP 37.3
[2023-08-24] MEDS: ferrous sulfate EC 325 mg Tablet PO (08:32)
[2023-08-24] MEDS: ibuprofen 800 mg tablet PO (08:32)
[2023-08-24] MEDS: docusate sodium 100 mg Capsule PO (08:32)
--- NOTE | 2023-08-24 09:46 | P.DS_ITS ---
Discharge Providers GLUE SPREADING MACHINE OPERATOR Date of Admission: 08/20/23 17:39 Date of Discharge: 08/24/23 Attending Provider at Admission: Robert Lackey MD Attending Provider at Discharge: Robert Lackey MD Primary GLUE SPREADING MACHINE OPERATOR: Dr. Lackey Primary Care Provider: Marcie Lehman Diagnoses at Discharge Discharge Diagnosis (1) Status post primary low transverse section: Details from hospital stay: 28-year-old female AB 3 delivered via primary low-transverse section of a viable baby girl after cervical ripening and trial of induction at 40.3 weeks gestation. Patient progressed to 6 cm in labor was complicated by tachycardia. Patient's post operative stay has been uneventful, she is tolerating a regular diet, voiding, passing flatus and ambulating in her room and in the hallway. Patient denies headaches blurred vision no dizziness with ambulation. Ibuprofen has provided adequate pain relief. Discussion of postoperative as well as expectations including wound care, no strenuous activities and no sexual activities has been reviewed in great extent. Patient has been advised to return to the emergency room if excessive bleeding, fever or chills or opening of her wound occurs. Patient verbalizes understanding. Vital signs stable, afebrile Exam?abdomen?soft, fundus firm. Incision clean dry and intact. Extremities?no edema negative Homans' sign. Status: Acute (2) tachycardia during labor: Status: Acute (3) Postmaturity , 40-42 weeks gestation: Status: Acute (4) Oligohydramnios antepartum: Status: Acute (5) Anemia affecting in third trimester: Status: Acute (6) Club foot of fetus affecting antepartum care of mother: Status: Acute (7) Abnormal cervical Papanicolaou smear affecting in second trimester: Status: Acute (8) Supervision of other high-risk : Status: Acute (9) History of recurrent miscarriages: Status: Acute (10) Prolactin increased: Status: Acute Reason for Visit Reason for Visit: IOL Information Peripartum Data: Delivery Method: Physical Exam Back/Pelvis: OTHER: Abdomen soft, fundus firm, incision clean dry and intact Extremity: OTHER: No edema, negative Homans' sign Urinary Catheter Management: Estrada: Cath Placed During This Visit: yes, but has since been removed by the nurse Reason for Continuing Indwelling Catheter: Decision to DC Catheter Urinary Catheter Date of Insertion: 08/21/23 Urinary Catheter Time of Insertion: 22:27 Date Urinary Catheter Removed: 08/22/23 Time Urinary Catheter Discontinued: 22:45 History History History 4 Term 0 0 Miscarriages/Ectopic 3 Living Children 0 Discharge Data Studies Completed and Pending Laboratory Results WBC 15.57 10^3/uL (3.29-11.43) H 08/22/23 17:19 RBC 2.76 10^6/uL (3.85-5.65) L 08/22/23 17:19 Hgb 8.00 g/dL (11.27-16.99) L 08/22/23 17:19 Hct 24.5 % (36-47) L 08/22/23 17:19 MCV 88.8 fl (85-98) 08/22/23 17:19 MCH 29.0 pg (27-33) 08/22/23 17:19 MCHC 32.7 g/dL (30-55) 08/22/23 17:19 RDW 13.2 % (12.1-15.1) 08/22/23 17:19 Plt Count 187 10^3/cmm (157-399) 08/22/23 17:19 MPV 11.9 fL (7.4-10.4) H 08/22/23 17:19 Neut % (Auto) 68.1 % 08/20/23 17:45 Lymph % (Auto) 23.4 % 08/20/23 17:45 Terrell % (Auto) 6.9 % 08/20/23 17:45 Eos % (Auto) 0.8 % 08/20/23 17:45 Baso % (Auto) 0.4 % 08/20/23 17:45 Neut # (Auto) 7.65 10^3/uL (1.8-7.7) 08/20/23 17:45 Lymph # (Auto) 2.6 10^3/uL (0.8-4.8) 08/20/23 17:45 Terrell # (Auto) 0.8 10^3/uL (0.2-0.9) 08/20/23 17:45 Eos # (Auto) 0.1 10^3/uL (0.0-0.8) 08/20/23 17:45 Baso # (Auto) 0.0 10^3/uL (0.0-0.1) 08/20/23 17:45 Nucleated RBC % (auto) 0 % 08/20/23 17:45 Nucleated RBCs # 0.0 /100WBC 08/20/23 17:45 Blood Type A Positive 08/20/23 17:45 Rho(D) Type Rh positive 08/20/23 17:45 Antibody Screen Negative 08/20/23 17:45 Vitals Last Vital Signs Temp 99.1 F 08/24/23 04:48 Pulse 103 H 08/24/23 04:47 Resp 17 08/24/23 04:00 BP 118/69 08/24/23 04:47 Pulse Ox 98 08/22/23 13:06 O2 Del Method Room Air 08/24/23 04:00 Results Labs OB ([facility]): Obstetrics US 04/22/23 Obstetrics US/Biophysical Profile Blood Type A Positive 08/20/23 Antibody Screen Negative 08/20/23 Hct 24.5 % (36-47) L 08/22/23 Hgb 8.00 g/dL (11.27-16.99) L 08/22/23 Rho(D) Type Rh positive 08/20/23 Plt Count 187 10^3/cmm (157-399) 08/22/23 Hep Bs Antigen Non-reactive (Nonreactive) 01/19/23 Hepatitis C Antibody Non-reactive (Nonreactive) 01/19/23 Rubella IgG Antibody 168.8 IU/mL (0.0-10.0) H 01/19/23 RPR Nonreactive (Nonreactive) 01/19/23 HIV 1&2 Ab & HIV 1 Ag Non-reactive (Non-Reactiv) 01/19/23 TSH 0.73 uIU/mL (0.27-4.20) 01/16/23 Free T4 1.17 ng/dL (0.82-1.77) 01/16/23 Cystic Fibrosis Screen Negative 03/03/23 Glucose 1 Hr 50 gm 70 mg/dL (85-140) L 04/28/23 Hemoglobin A1c 5.0 % (4.0-6.0) 02/25/22 Progesterone 10.20 ng/mL 05/22/21 FSH 5.4 mIU/mL 08/03/20 Ser , Semi-Qnt 48623.00 mIU/mL 01/02/23 HCG, Qual Positive (Negative) H 06/25/21 Urine Opiates Screen Negative ng/mL (Negative) 01/19/23 Ur Barbiturates Screen Negative ng/mL (Negative) 01/19/23 Ur Phencyclidine Scrn Negative ng/mL (Negative) 01/19/23 Ur Amphetamines Screen Negative ng/mL (Negative) 01/19/23 U Benzodiazepines Scrn Negative ng/mL (Negative) 01/19/23 Urine Cocaine Screen Negative ng/mL (Negative) 01/19/23 U Marijuana (THC) Screen Negative ng/mL (Negative) 01/19/23 Micro Urine Specimen 01/19/23 Pap Smear Interpret See note A 01/19/23 Prolactin 286.8 ng/mL (4.8-23.3) H 06/17/23 Discharge Plan Discharge Patient Disposition: Home Condition: Stable Prescriptions: Continued ferrous sulfate 325 mg (65 mg iron) tablet 325 mg PO BID 30 Days Qty: 60 3RF Gummies 400 mcg-35 mg- 25 mg-5 mg tablet,chewable 1 tab PO DAILY cabergoline 0.5 mg tablet 0.25 mg PO .COMPLEX Qty: 90 1RF Rx Instructions: 0.25 mg orally Twice a week; Discharge Orders: Discharge Order (Routine); Ordered 08/24/23 Ordered By: Araceli Rubin Referrals: Robert Lackey MD [Physician] - 09/07/23 11:00 am () Discharge Diet: Regular Discharge Activity: Increase activity as tolerated Patient Instructions: Depression (DC), Bleeding (ED), Preeclampsia and Eclampsia After Delivery (GEN), OB WHC, Opioid Safety, Abnormal Bleeding Activity Restrictions/Additional Instructions: No strenuous activity No sexual intercourse Assessment: S/p primary low transverse section with delivery of a viable baby girl. 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 We will discharge patient to home 2. Patient to continue vitamins and iron 3. Follow-up at clinic in 2 weeks for postoperative care Discharge Attestations GLUE SPREADING MACHINE OPERATOR Time Spent in Discharge Care*: less than 30 min Coding Level of Care Code Acute Code for Chg Fwd Diagnoses Status post primary low transverse section Z98.891 tachycardia during labor Postmaturity , 40-42 weeks gestation O48.0 Oligohydramnios antepartum O41.00X0 Anemia affecting in third trimester O99.013 Club foot of fetus affecting antepartum care of mother O35.HXX0 Abnormal cervical Papanicolaou smear affecting in second trimester O34.42; R87.619 Supervision of other high-risk O09.899 History of recurrent miscarriages N96 Prolactin increased R79.89
[2023-08-24 09:59] VITALS: BP 116/67; PULSE 95; TEMP 36.9
[2023-08-24 10:19] VITALS: BP 116/67; PULSE 95; RESP 16; TEMP 36.9
== END 2023-08-24 10:19 | disposition home or self-care (01) | DRG 787 ==
LOC: OPOB 17:41 → OBGYN 17:41
PROVIDERS: Obstetrics & Gynecology; Admitting Provider Obstetrics & Gynecology; PCP Nurse Practitioner Family; Visit Provider Obstetrics & Gynecology
PROC: 10D00Z1 Extraction of Products of Conception, Low, Open Approach (ICD-10-PCS; CPT 59514; principal; 2023-08-22 05:20)
DX: O48.0 Post-term pregnancy (principal); O41.03X0 Oligohydramnios, third trimester, not applicable or unspecified; Z3A.40 40 weeks gestation of pregnancy; Z37.0 Single live birth; O99.02 Anemia complicating childbirth; D64.9 Anemia, unspecified; O76 Abnormality in fetal heart rate and rhythm complicating labor and delivery; O35.HXX0 Maternal care for other (suspected) fetal abnormality and damage, fetal lower extremities anomalies, not applicable or unspecified
CPT/HCPCS: 36415; 51702; 59025; 59409; 84315; 85025; 85027; 86850; 86900; 98960; 99211; J1580; J1885; J2210; J2274; J2371; J2405; J2590; J2765; J2795; J3010; J3490; J7030; J7120; J7121

== ENCOUNTER 2024-06-21 09:35 | Outpatient (CLI) | payer OTHER, MEDICAID, SELFPAY | END 2024-06-21 09:36 | disposition home or self-care (01) | LOC: LAB 09:38 | PROVIDERS: PCP Nurse Practitioner Family; Visit Provider Internal Medicine | DX: R79.89 Other specified abnormal findings of blood chemistry (principal) | CPT/HCPCS: 84146 ==

== ENCOUNTER 2025-01-13 12:40 | Outpatient (CLI) | payer OTHER, MEDICAID, SELFPAY | END 2025-01-13 12:41 | disposition home or self-care (01) | LOC: LAB 12:53 | PROVIDERS: PCP Nurse Practitioner Family; Visit Provider Internal Medicine | DX: R79.89 Other specified abnormal findings of blood chemistry (principal) | CPT/HCPCS: 36415; 84146 ==